=== PATIENT | male | born 1965 | race Caucasian/White ===

== ENCOUNTER 2020-06-16 12:09 | Inpatient (IN) | payer BC, OTHER ==
[~2020-06-16 12:09] MED LIST: Iopamidol-370 76% 500 ML 1 ML ONE
[2020-06-16] MEDS ORDERED: niCARdipine 20MG In NaCl 20 MG/200 ML BAG ONE (12:19)
--- NOTE | 2020-06-16 12:23 | CT ---
CT HEAD WITHOUT IV CONTRAST COMPARISON: None HISTORY: Level 1 stroke. Slurred speech and right-sided weakness. TECHNIQUE: Axial CT imaging at 5 mm intervals from vertex through skull base without contrast FINDINGS: Mild cerebellar volume loss is present. Minimal low-density area seen just inferior to the anterior h orn left lateral ventricle which is nonspecific but could be attributable to mild chronic small vessel ischemic changes. There is no evidence of an acute cortical infarction, hemorrhage, mass effec t, or midline shift. The ventricular system is normal in size, shape, and position. Skull base has a normal CT appearance. Mucous cyst is present in the right sphenoid sinus minimal mucosal thickening in the posterior left e thmoid cerebral and the left sphenoid sinus. Osseous structures appear intact, but there is slight mottled appearance of the clivus probably relat ed to osteopenia. IMPRESSION: 1. No acute intracranial abnormality demonstrated. 2. Above findings discussed with Dr. Otto in the emergency department on 06/16/2020 at 1219 ivan rs
[2020-06-16 12:25] LABS: #Basophils 0.1 thou/uL (0.0-0.2); #Eosinphils 0.2 thou/uL (0.0-0.7); #Lymphocytes 1.2 thou/uL (1.20-3.40); #Monocytes 0.6 thou/uL (0.11-0.59); #Neutrophils 2.8 thou/uL (1.40-6.50); %Basophils 1.1 % (0.0-1.0); %Eosinophils 4.3 % (0.0-10.0); %Lymphocytes 24.6 % (21.0-51.0); Hemoglobin 16.7 g/dL (14.0-18.0); Mean Corpuscular HGB CONC 33.3 g/dL (32.0-36.0); Mean Corpuscular Hemoglobin 31.6 pg (27.0-31.0); Mean Corpuscular Volume 94.9 fL (78.0-98.0); Mean Platelet Volume 10.9 fL (7.4-10.4); Platelet Count 166 thou/uL (130-400); RBC Distribution Width 12.3 % (11.5-14.5); Red Blood Cell (RBC) Count 5.29 mill/uL (4.70-6.10); White Blood Cell (WBC) Count 4.8 thou/uL (4.8-10.8)
[2020-06-16] MEDS ORDERED: Labetalol HCl 100 MG/20 ML VIAL ONE (12:26)
[2020-06-16 12:31] LABS: INR-International Normal Ratio 0.9; Prothrombin Time 12.8 sec (12.0-14.7)
[2020-06-16 12:32] LABS: PTT 28.2 sec (22.9-36.1)
[2020-06-16 13:27] LABS: Chloride 102 mmol/L (98-107); Potassium 4.4 mmol/L (3.5-5.1); Sodium 132 mmol/L (136-145)
[2020-06-16 13:28] LABS: Calcium 8.8 mg/dL (7.8-10.44)
[2020-06-16 13:29] LABS: Globulin 3.7 g/dL (2.4-3.5); Glucose 83 mg/dL (70-105); Protein, Total 7.7 g/dL (6.0-8.3)
[2020-06-16 13:30] LABS: Anion Gap 14 mmol/L (10-20); Carbon Dioxide 20 mmol/L (22-29)
[2020-06-16 13:31] LABS: Alkaline Phosphatase 76 U/L (40-110); Bilirubin, Total 0.5 mg/dL (0.2-1.2)
[2020-06-16 13:32] LABS: Calc. Creatinine Clearance 0 mL/min (70-130); Estimated GFR-MDRD 56
[2020-06-16 13:33] LABS: BUN (Urea Nitrogen) 18 mg/dL (8.4-25.7)
[2020-06-16 13:34] LABS: AST (SGOT) 55 U/L (5-34)
[2020-06-16 13:35] LABS: ALT (SGPT) 31 U/L (8-55); CK (CPK) 1462 U/L (30-200)
--- NOTE | 2020-06-16 14:53 | PDOC.HHP ---
Hospitalist HPI - History of Present Illness Slurred speech History of Present Illness: This is a 54-year-old male patient with a history of hypertension and hyperlipidemia who came in this morning on account of slurred speech and worsening right-sided weakness. Patient was driving when he pulled over at a stop and noticed was having slurred speech and weakness on his right side. He identified that has a stroke and called EMS. He was brought in here for further evaluation. He denied any associated fall, paresthesia or numbness. There was no associated chest pain or palpitations. He has no history of A. fib. He notes severe cramping in his right lower limbs. 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 Otherwise she has a history of hypertension for which she is on antihypertensives which she did not take. On presentation blood pressure was 155/104, pulse 70, respiratory rate 14, satting 100% on room air. On initial evaluation, CK was noted to be 1462, sodium 132, creatinine one 1.33, no baseline and records, hemoglobin was 16.7 and WBC 4.8. Platelet count 166. Head CT showed no acute intracranial process, CTA however noted mild atherosclerotic calcifications and plaques with mild narrowing involving each proximal internal carotid artery. Also had focal severe stenosis over the proximal left superior cerebellar, mild to moderate atherosclerotic narrowing involving most proximal posterior cerebral artery. He was given Cardene IV for blood pressure, as well as labetalol and TPA. He feels slight improvement since has been here. Hospitalist team was consulted for admission. Hospitalist ROS - Review of Systems Constitutional: denies: fever, chills, sweats Respiratory: denies: cough, shortness of breath, hemoptysis, SOB with excertion Cardiovascular: denies: chest pain, palpitations, orthopnea, paroxysmal noc. dyspnea Gastrointestinal: denies: nausea, vomiting, abdominal pain, diarrhea Genitourinary: denies: dysuria, frequency, incontinence Musculoskeletal: reports: leg pain Hospitalist History - Past Medical History Cardiac: reports: HTN - Family History Other Family History: None of significance - Social History Smoking Status: Former smoker Alcohol: reports: None Drugs: reports: none Activity level: independent ambulation - Exam General Appearance: awake alert General - other findings: Patient in bed, nasal tone to his voice, dysarthric ENT: normocephalic atraumatic, no oropharyngeal lesions Heart: RRR, no murmur, no gallops, no rubs Respiratory: no wheezes, no rales, no ronchi, no tachypnea Gastrointestinal: soft, non-tender, non-distended, normal bowel sounds Extremities: no cyanosis, no clubbing, no edema Neurological: cranial nerve grossly intact (Dysarthric), normal sensation to touch Neurological - other findings: 5/5 in upper and lower limbs Psychiatric: normal affect, A&O x 3 Hospitalist Results - Labs Result Diagrams: 06/16/20 12:15 06/16/20 13:09 Lab results: WBC 4.8 thou/uL (4.8-10.8) 06/16/20 12:15 Hgb 16.7 g/dL (14.0-18.0) 06/16/20 12:15 Hct 50.2 % (42.0-52.0) 06/16/20 12:15 MCV 94.9 fL (78.0-98.0) 06/16/20 12:15 Plt Count 166 thou/uL (130-400) 06/16/20 12:15 Neutrophils % 58.0 % (42.0-75.0) 06/16/20 12:15 Sodium 132 mmol/L (136-145) L 06/16/20 13:09 Potassium 4.4 mmol/L (3.5-5.1) 06/16/20 13:09 Chloride 102 mmol/L (98-107) 06/16/20 13:09 Carbon Dioxide 20 mmol/L (22-29) L 06/16/20 13:09 BUN 18 mg/dL (8.4-25.7) 06/16/20 13:09 Creatinine 1.33 mg/dL (0.7-1.3) H 06/16/20 13:09 Glucose 83 mg/dL (70-105) 06/16/20 13:09 Calcium 8.8 mg/dL (7.8-10.44) 06/16/20 13:09 Total Bilirubin 0.5 mg/dL (0.2-1.2) 06/16/20 13:09 AST 55 U/L (5-34) H 06/16/20 13:09 ALT 31 U/L (8-55) 06/16/20 13:09 Alkaline Phosphatase 76 U/L (40-110) 06/16/20 13:09 Creatine Kinase 1462 U/L (30-200) H 06/16/20 13:09 Troponin I Less than 0.010 ng/mL (< 0.028) 06/16/20 12:15 Serum Total Protein 7.7 g/dL (6.0-8.3) 06/16/20 13:09 Albumin 4.0 g/dL (3.5-5.0) 06/16/20 13:09 Hospitalist H&P A/P - Plan Plan: 54-year-old male patient history of hypertension, hyperlipidemia and sarcoma presenting with sudden onset dysarthria and right-sided weakness. This was concerning for stroke in a status post TPA. Stroke Dysarthria with right-sided weakness. No clear neurological deficits besides dysarthria at the time of my evaluation. TPA administeredtime 12:30 PM on 06/16/2020complete 12:30 PM We will admit to CCU for close monitoring. BP target below 180/105 Consult neurology BONITA/CKD Creatinine 1.33 at presentation We will monitor next Hyponatremia Sodium 132 Monitor BMP History of sarcoma, Uncontrolled hypertension Start blood pressure medications once TPA is over next VT prophylaxison TPA protocol now. CODE STATUSDNR DPOAsister
[2020-06-16] MEDS ORDERED: hydrALAZINE 20 MG/ML VIAL SLOW IVP PRN (15:56)
[2020-06-16] MEDS ORDERED: Communication Order-Pharmacy FS SCH (15:56)
[2020-06-16] MEDS ORDERED: Labetalol HCl 100 MG/20 ML VIAL SLOW IVP PRN (15:56)
[2020-06-16] MEDS ORDERED: niCARdipine 25 MG in Sodium Chloride 0.9% 250 ML 240 ML IVPB PRN (15:56)
[2020-06-16 17:56] VITALS: BMI 24.3
--- NOTE | 2020-06-17 10:19 | PDOC.HOSPP ---
- Subjective Encounter Date: 06/17/20 Encounter Time: 10:18 Subjective: Mr. Robbins was seen today in follow-up of acute CVA with right sided weakness, and dysarthria. He has not noticed much improvement after the TPA. - Objective Vital Signs & Weight: Vital Signs (12 hours) Temp 06/17/20 04:00 97.7 F 06/17/20 00:00 97.5 F L Weight Weight 174 lb 13.225 oz Most Recent Monitor Data Heart Rate from ECG 89 NIBP 166/106 NIBP BP-Mean 126 Respiration from ECG 12 SpO2 100 I&O: 06/16/20 06/17/20 06/18/20 06:59 06:59 06:59 Intake Total 330 Output Total 950 Balance -620 Result Diagrams: 06/16/20 12:15 06/16/20 13:09 Additional Labs: Accuchecks 06/16/20 12:12 POC Glucose 87 Hospitalist ROS - Medication Medications: Active Medications Generic Name Dose Route Start Last Admin Trade Name Freq PRN Reason Stop Dose Admin Miscellaneous Information 1 each 06/16/20 15:56 06/16/20 17:40 Communication Order-Pharmacy FS 06/17/20 12:30 Not Given NOW ANTHONY - Exam Eye: PERRL, anicteric sclera Heart: RRR, no murmur, no gallops, no rubs, normal peripheral pulses Respiratory: CTAB, no wheezes, no rales, no ronchi, normal chest expansion Gastrointestinal: soft, non-distended Extremities: no cyanosis, no edema Neurological: speech deficit (+ weakness in the right upper extremity, and mild weakness in the right lower extremity) Hosp A/P (1) Acute CVA (cerebrovascular accident) Code(s): I63.9 - CEREBRAL INFARCTION, UNSPECIFIED Status: Acute (2) Right hemiplegia Code(s): G81.91 - HEMIPLEGIA, UNSPECIFIED AFFECTING RIGHT DOMINANT SIDE Status: Acute (3) Hypertension Code(s): I10 - ESSENTIAL (PRIMARY) HYPERTENSION Status: Chronic (4) Dysarthria Code(s): R47.1 - DYSARTHRIA AND ANARTHRIA Status: Acute (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
--- NOTE | 2020-06-17 10:19 | CT ---
Exam: Head CT without contrast HISTORY: CVA. Level 1 stroke. COMPARISON: 06/16/2020 FINDINGS: Hemorrhage: No intraparenchymal hemorrhage or extra-axial hematoma. Brain parenchyma: Cortical huynh-white matter differentiation is preserved. No mass effect or midline shift. Basilar cisterns are patent. Ventricular system: Ventricles and sulci are patent and symmetric. Calvarium: Intact. Sinuses and mastoid air cells: Adequate aeration. IMPRESSION: 1. No acute intracranial process 2. No significant interval change.
[2020-06-17] MEDS ORDERED: Amlodipine 5 MG TAB PO SCH (12:00)
--- NOTE | 2020-06-17 12:52 | CON ---
NEUROLOGY CONSULTATION DATE OF CONSULTATION: 06/17/2020 REASON FOR CONSULTATION: Slurred speech, status post tPA. HISTORY OF PRESENT ILLNESS: Mr. Chaparro is a 54-year-old male with history significant for hypertension, hyperlipidemia, presented with slurred speech and worsening right-sided weakness. Per the patient, he was driving and was pulled over at a stop because he noticed he had slurred speech and was weak on the right side. He was concerned about stroke, so called EMS, and he was brought in for further evaluation. The patient denies any nausea, vomiting, headache, chest pain, abdominal pain, recent illness or recent exposure to COVID problems with swallowing, headache, loss of vision, blurred vision, or loss of consciousness. He does have history of sarcoma in the sphenoidal sinus and was treated with chemotherapy and radiation a decade ago. In the emergency room, his blood pressure was 155/104, pulse 70, respiratory rate 15, and CT scan was done, which was negative for acute intracranial pathology. CTA did not reveal hemodynamically significant stenosis. He was given Cardene IV for blood pressure and labetalol and also tPA with slight improvement in his system. He was admitted for further evaluation. REVIEW OF SYSTEMS: All systems were reviewed and were negative except the pertinent positives and negatives mentioned in the HPI. PAST MEDICAL HISTORY: Hypertension and hyperlipidemia. PAST SURGICAL HISTORY: None. FAMILY HISTORY: No significant family history. SOCIAL HISTORY: Independent. Denies smoking. Denies alcohol, illegal drug use. He is a former smoker. ALLERGIES; NSAIDS Vital Signs & Weight: Vital Signs (12 hours) Temp 06/17/20 04:00 97.7 F 06/17/20 00:00 97.5 F L Weight Weight 174 lb 13.225 oz Most Recent Monitor Data Heart Rate from ECG 89 NIBP 166/106 NIBP BP-Mean 126 Respiration from ECG 12 SpO2 100 I&O: 06/16/20 06/17/20 06/18/20 06:59 06:59 06:59 Intake Total 330 Output Total 950 Balance -620 Additional Labs: Accuchecks 06/16/20 12:12 POC Glucose 87 Active Medications Generic Name Dose Route Start Last Admin Trade Name Freq PRN Reason Stop Dose Admin Miscellaneous Information 1 each 06/16/20 15:56 06/16/20 17:40 Communication Order-Pharmacy FS 06/17/20 12:30 Not Given NOW ANTHONY PHYSICAL EXAMINATION: General Appearance: awake alert General - other findings: Patient in bed, nasal tone to his voice, dysarthric ENT: normocephalic atraumatic, no oropharyngeal lesions Heart: RRR, no murmur, no gallops, no rubs Respiratory: no wheezes, no rales, no ronchi, no tachypnea Gastrointestinal: soft, non-tender, non-distended, normal bowel sounds Extremities: no cyanosis, no clubbing, no edema Neurological: the patient is alert and oriented to person, place, and time. Speech is dysarthria. Recent and remote memory intact. Cranial nerves 2 through 12 intact except 10, dysarthria. Motor, muscle tone and bulk are normal. Mild right hemiparesis. Sensory intact. Cerebellar, finger-nose testing intact. Gait deferred due to patient's safety reason. DATA REVIEWED: I reviewed the labs which were significant for mild hyponatremia 132 and creatinine 1.33. Lab results: WBC 4.8 thou/uL (4.8-10.8) 06/16/20 12:15 Hgb 16.7 g/dL (14.0-18.0) 06/16/20 12:15 Hct 50.2 % (42.0-52.0) 06/16/20 12:15 MCV 94.9 fL (78.0-98.0) 06/16/20 12:15 Plt Count 166 thou/uL (130-400) 06/16/20 12:15 Neutrophils % 58.0 % (42.0-75.0) 06/16/20 12:15 Sodium 132 mmol/L (136-145) L 06/16/20 13:09 Potassium 4.4 mmol/L (3.5-5.1) 06/16/20 13:09 Chloride 102 mmol/L (98-107) 06/16/20 13:09 Carbon Dioxide 20 mmol/L (22-29) L 06/16/20 13:09 BUN 18 mg/dL (8.4-25.7) 06/16/20 13:09 Creatinine 1.33 mg/dL (0.7-1.3) H 06/16/20 13:09 Glucose 83 mg/dL (70-105) 06/16/20 13:09 Calcium 8.8 mg/dL (7.8-10.44) 06/16/20 13:09 Total Bilirubin 0.5 mg/dL (0.2-1.2) 06/16/20 13:09 AST 55 U/L (5-34) H 06/16/20 13:09 ALT 31 U/L (8-55) 06/16/20 13:09 Alkaline Phosphatase 76 U/L (40-110) 06/16/20 13:09 Creatine Kinase 1462 U/L (30-200) H 06/16/20 13:09 Troponin I Less than 0.010 ng/mL (< 0.028) 06/16/20 12:15 Serum Total Protein 7.7 g/dL (6.0-8.3) 06/16/20 13:09 Albumin 4.0 g/dL (3.5-5.0) 06/16/20 13:09 ASSESSMENT AND PLAN: (1) Acute CVA (cerebrovascular accident) Code(s): I63.9 - CEREBRAL INFARCTION, UNSPECIFIED Status: Acute (2) Right hemiplegia Code(s): G81.91 - HEMIPLEGIA, UNSPECIFIED AFFECTING RIGHT DOMINANT SIDE Status: Acute (3) Hypertension Code(s): I10 - ESSENTIAL (PRIMARY) HYPERTENSION Status: Chronic (4) Dysarthria Code(s): R47.1 - DYSARTHRIA AND ANARTHRIA Status: Acute (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 Chaparro is a 54-year-old male with history significant for hypertension, hyperlipidemia, and prior history of sarcoma, presented with acute onset dysarthria and right-sided weakness. He is status post tPA. Not much improvement in mild right hemiparesis and dysarthria .tPA was administered at 12:30 p.m. on 06/16/2020 and completed. Permissive controlof blood pressure at this time. Strict control of blood glucose. Frequent neuro checks. No antiplatelets or anticoagulants at this time 24 hours post tPA. Repeat head CT reviewed, which was negative for acute stroke or bleed. Consider starting aspirin 24 hours post tpa. Repeat HCT negative for bleed. N.p.o. until cleared by speech. Telemetry and 2 D Echo. Start home medications. Start statin for secondary stroke prevention. Continue medical management per primary team. PT/OT/Speech. DVT prophylaxis. We will continue to follow. Thank you for the consult. Job ID: [id number] MTDD
--- NOTE | 2020-06-17 13:40 | CT ---
EXAM: CT angiogram head and neck with IV contrast and 3-D reconstructions PROVIDED CLINICAL HISTORY: Slurred speech and right-sided weakness. COMPARISON: None FINDINGS: Minimal atherosclerotic plaque is seen at the aortic arch. There is a normal arrangement of the great vessels at the aortic arch which are patent. The innominate artery and right subclavian artery patent. Portion of the left subclavian artery is obscured due to dense contrast within the adjacent s ubclavian vein. Bilateral common carotid arteries are patent. There is mild atherosclerotic calcification and plaque involving the origins and proximal bilateral i nternal carotid arteries without significant narrowing involving either internal carotid artery. The bilateral vertebral arteries are codominant and patent. The basilar artery is patent There is a focal severe stenosis involving the proximal left superior cerebellar artery. The right gonsalez perior cerebellar artery is patent. Mild to moderate atherosclerotic irregularity and narrowing is seen involving the most proximal right posterior cerebral artery. Left posterior cerebral artery is p atent Dense vascular calcifications are seen in the carotid siphons with at least mild degrees of narrowing present. The bilateral anterior cerebral and middle cerebral arteries are patent without focal stenosis or branch occlusion. As noted on noncontrast CT head, there is a small low-density area seen just superior to the anterior horn left lateral ventricle in the region of the left frontal forceps region likely attributable to chronic small vessel ischemic changes. There is heterogeneity involving the clivus likely related to osteopenia. Small amount of fluid is seen in the posterior nasopharynx likely secondary to secretions. Mild mucos al thickening is seen in the left maxillary antrum as well as left posterior ethmoidal air cells and right sphenoid sinus with tiny mucous retention cysts in the right maxillary antrum. Mastoid air cells are clear. Mild degenerative change seen in the spine. IMPRESSION: 1. Mild atherosclerotic calcifications and plaque with mild narrowing involving each proximal interna l carotid artery, but the degree of narrowing is less than 50%. 2. Patent bilateral vertebral arteries. 3. Focal severe stenosis involving the proximal left superior cerebellar artery. 4. [id number] atherosclerotic irregularity and narrowing involving the most proximal right post erior cerebral artery. 5 Patent bilateral anterior cerebral and middle cerebral arteries. 6. Above findings discussed with Dr. Otto in the emergency department on 06/16/2020 at 1301 ivan rs. Transcribed Date/Time: 06/17/2020 1:40 PM
[2020-06-17] MEDS ORDERED: FLU VACC QS2020-21(6MOS UP)/PF 60 MCG/0.5 ML SYRINGE IM ONE (21:00)
[2020-06-17] MEDS: hydrALAZINE 25 MG TAB PO SCH (22:05)
[2020-06-18 05:33] LABS: Cardiac Risk 6.5 (Less than 4.5)
[2020-06-18] MEDS: hydrALAZINE 25 MG TAB PO SCH ×3 (08:41→20:20)
[2020-06-18] MEDS: Clopidogrel Bisulfate 75 MG TAB PO SCH (08:45)
[2020-06-18] MEDS ORDERED: Amlodipine 5 MG TAB PO SCH (09:00)
--- NOTE | 2020-06-18 10:26 | PDOC.HOSPP ---
- Subjective Encounter Date: 06/18/20 Encounter Time: 10:25 Subjective: Rosendo was seen today in follow-up of acute CVA. He does not have any new complaints. He notes continued weakness in his right upper and lower extremity. - Objective Vital Signs & Weight: Vital Signs (12 hours) Temp Pulse Resp BP BP Pulse Ox 06/18/20 08:41 70 152/82 H 06/18/20 07:50 97.6 F 70 20 152/82 H 96 06/18/20 04:00 98.3 F 70 18 158/94 H 96 06/18/20 00:00 98.0 F 73 18 151/101 H 96 Weight Admit Weight 174 lb Weight 174 lb 13.225 oz Most Recent Monitor Data Heart Rate from ECG 72 NIBP 126/90 NIBP BP-Mean 102 Respiration from ECG 16 SpO2 100 I&O: 06/17/20 06/18/20 06/19/20 06:59 06:59 06:59 Intake Total 330 900 Output Total 950 700 Balance -620 200 Result Diagrams: 06/16/20 12:15 06/16/20 13:09 Hospitalist ROS - Medication Medications: Active Medications Generic Name Dose Route Start Last Admin Trade Name Freq PRN Reason Stop Dose Admin Clopidogrel Bisulfate 75 mg 06/18/20 09:00 06/18/20 08:45 Clopidogrel Bisulfate 75 Mg Tab PO 75 mg DAILY ANTHONY Administration Hydralazine HCl 25 mg 06/17/20 21:00 06/18/20 08:41 Hydralazine 25 Mg Tab PO 25 mg TID ANTHONY Administration - Exam Eye: PERRL, anicteric sclera Heart: RRR, no murmur, no gallops, no rubs, normal peripheral pulses Respiratory: CTAB, no wheezes, no rales, no ronchi, normal chest expansion, no tachypnea, normal percussion Gastrointestinal: soft, non-tender, non-distended, normal bowel sounds, no palpable masses, no hepatomegaly, no splenomegaly Extremities: no cyanosis, no edema Hosp A/P (1) Acute CVA (cerebrovascular accident) Code(s): I63.9 - CEREBRAL INFARCTION, UNSPECIFIED Status: Acute (2) Right hemiplegia Code(s): G81.91 - HEMIPLEGIA, UNSPECIFIED AFFECTING RIGHT DOMINANT SIDE Status: Acute (3) Hypertension Code(s): I10 - ESSENTIAL (PRIMARY) HYPERTENSION Status: Chronic (4) Dysarthria Code(s): R47.1 - DYSARTHRIA AND ANARTHRIA Status: Acute (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 Will use Plavix instead * He also says he had a bad reaction to Statin's in the past. Ordered Lipitor, but he says he can not take it. * HTN- blood pressure is elevated-will add a low dose Losartan, and titrate as tolerated * Continue PT/OT and Speech Therapy * Will screen for Inpatient Rehab
[2020-06-18 10:35] LABS: SARS-CoV-2 MS2 Positive; SARS-CoV-2 N Gene Negative; SARS-CoV-2 S Gene Negative; SARS-CoV-2 by NAA Not Detected (NotDetected); SARS-CoV-2 orf1ab Negative
--- NOTE | 2020-06-18 11:30 | CT ---
CT HEAD WITHOUT IV CONTRAST COMPARISON: 06/17/2020 HISTORY: CVA, post TPA administration. TECHNIQUE: Axial CT imaging at 5 mm intervals from vertex through skull base without contrast FINDINGS: There is mild cerebellar volume loss. There is no evidence of an acute infarction, hemorrhage, mass e ffect, or midline shift. The ventricular system is normal in size, shape, and position. Skull base has a normal CT appearance. Gross thickening is again seen in the right sphenoid sinus. CT head is stable compared to prior exam. IMPRESSION: 1. No acute intracranial abnormality demonstrated.
--- NOTE | 2020-06-18 12:41 | PDOC.NEUPN ---
- Subjective Encounter Date: 06/18/20 Subjective: Patient continues to have focal neurological deficits including speech deficit and right hemiparesis. - Objective Vital Signs & Weight: Vital Signs (12 hours) Temp Pulse Resp BP BP Pulse Ox 06/18/20 08:41 70 152/82 H 06/18/20 07:50 97.6 F 70 20 152/82 H 96 06/18/20 04:00 98.3 F 70 18 158/94 H 96 Weight Admit Weight 174 lb Weight 174 lb 13.232 oz Most Recent Monitor Data Heart Rate from ECG 72 NIBP 126/90 NIBP BP-Mean 102 Respiration from ECG 16 SpO2 100 I&O: 06/17/20 06/18/20 06/19/20 06:59 06:59 06:59 Intake Total 330 900 Output Total 950 700 Balance -620 200 Result Diagrams: 06/16/20 12:15 06/16/20 13:09 Radiology Reviewed by me: Yes EKG Reviewed by me: Yes ROS - Review of Systems Constitutional: denies: fever, chills, sweats, weakness, malaise, other Eyes: denies: pain, vision change, conjunctivae inflammation, eyelid inflammation, redness, other ENT: denies: ear pain, ear discharge, nose pain, nose discharge, nose congestion, mouth pain, mouth swelling, throat pain, throat swelling, other Respiratory: denies: cough, dry, shortness of breath, hemoptysis, SOB with excertion, pleuritic pain, sputum, wheezing, other Gastrointestinal: denies: nausea, vomiting, abdominal pain, diarrhea, c onstipation, melena, hematochezia, other Genitourinary: denies: dysuria, frequency, incontinence, hematuria, retention, other Musculoskeletal: denies: neck pain, shoulder pain, arm pain, back pain, hand pain, leg pain, foot pain, other Skin: denies: rash, lesions, kwaku, bruising, other Neurological: reports: weakness, change in speech. denies: numbness, incoordination, confusion, seizures, other - Medication Medications: Active Medications Generic Name Dose Route Start Last Admin Trade Name Freq PRN Reason Stop Dose Admin Clopidogrel Bisulfate 75 mg 06/18/20 09:00 06/18/20 08:45 Clopidogrel Bisulfate 75 Mg Tab PO 75 mg DAILY ANTHONY Administration Hydralazine HCl 25 mg 06/17/20 21:00 06/18/20 08:41 Hydralazine 25 Mg Tab PO 25 mg TID ANTHONY Administration - Exam General Appearance: awake alert Eye: PERRL ENT: normocephalic atraumatic Neck: supple Respiratory: CTAB Cardiovascular: RRR Gastrointestinal: soft Extremities: no cyanosis Skin: normal turgor Neurological: no new deficit Musculoskeletal: no muscle wasting PSYCH: normal affect, normal behavior, A&O x 3 Results - Labs Result Diagrams: 06/16/20 12:15 06/16/20 13:09 Lab results: WBC 4.8 thou/uL (4.8-10.8) 06/16/20 12:15 Hgb 16.7 g/dL (14.0-18.0) 06/16/20 12:15 Hct 50.2 % (42.0-52.0) 06/16/20 12:15 MCV 94.9 fL (78.0-98.0) 06/16/20 12:15 Plt Count 166 thou/uL (130-400) 06/16/20 12:15 Neutrophils % 58.0 % (42.0-75.0) 06/16/20 12:15 Sodium 132 mmol/L (136-145) L 06/16/20 13:09 Potassium 4.4 mmol/L (3.5-5.1) 06/16/20 13:09 Chloride 102 mmol/L (98-107) 06/16/20 13:09 Carbon Dioxide 20 mmol/L (22-29) L 06/16/20 13:09 BUN 18 mg/dL (8.4-25.7) 06/16/20 13:09 Creatinine 1.33 mg/dL (0.7-1.3) H 06/16/20 13:09 Glucose 83 mg/dL (70-105) 06/16/20 13:09 Calcium 8.8 mg/dL (7.8-10.44) 06/16/20 13:09 Total Bilirubin 0.5 mg/dL (0.2-1.2) 06/16/20 13:09 AST 55 U/L (5-34) H 06/16/20 13:09 ALT 31 U/L (8-55) 06/16/20 13:09 Alkaline Phosphatase 76 U/L (40-110) 06/16/20 13:09 Creatine Kinase 1462 U/L (30-200) H 06/16/20 13:09 Troponin I Less than 0.010 ng/mL (< 0.028) 06/16/20 12:15 Serum Total Protein 7.7 g/dL (6.0-8.3) 06/16/20 13:09 Albumin 4.0 g/dL (3.5-5.0) 06/16/20 13:09 - EKG Interpretation EKG: Normal sinus rhythm - Radiology Interpretation MRI - head Status: pending CT scan - head Status: image reviewed by me, report reviewed by me Additional Comment: Head CT reviewed which was negative for acute intracranial pathology. 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 Anand Elizabeth is a 54-year-old male with history significant for sarcoma, hypertension presented with acute onset speech deficit with right hemiparesis. He is s/p TPA and reports possible persistent symptoms. Head CT reviewed which was negative for acute intracranial pathology. CTA of the head and neck reviewed and results noted. 2D echo pending. Continue telemetry to rule out arrhythmias. Neurochecks every 4 hours. Strict control of blood pressure and blood glucose. Continue Plavix for secondary stroke prevention. Patient is allergic to aspirin. Continue high intensity statin for secondary stroke prevention. Continue home medications. PT/OT/speech DVT prophylaxis Rehab screen. Continue medical management per primary team. Plan discussed in detail with the patient, patient's stepmother and during MDR rounds.
--- NOTE | 2020-06-18 16:09 | MRI ---
MRI brain noncontrast HISTORY: CVA. FINDINGS: Centered within the left side of the steph is an irregular shaped focus of restricted diffus ion with corresponding defect on ADC mapping images. It is 1.3 cm x 0.9 cm diameters on the axial images. Very mild FLAIR and T2 abnormality at this location. No other areas of acute hemorrhage or infarct. Very mild scattered chronic ischemic small vessel dise ase. Mild mucosal thickening left maxillary sinus. IMPRESSION : Acute infarct left steph..
[2020-06-18] MEDS: Atorvastatin Calcium 40 MG TAB PO SCH (20:20)
[2020-06-19] MEDS ORDERED: Losartan 25 MG TAB PO SCH ×4 (09:00→11:00)
--- NOTE | 2020-06-19 10:50 | PDOC.HOSPP ---
- Subjective Encounter Date: 06/19/20 Encounter Time: 10:48 Subjective: Mr. Robbins was seen today in follow-up of acute CVA. He does not have any complaints. He notes improved strength in his right leg, but the right upper extremity seems weaker. - Objective Vital Signs & Weight: Vital Signs (12 hours) Temp Pulse Resp BP Pulse Ox 06/19/20 09:28 97.9 F 72 14 139/96 H 98 06/19/20 07:46 97 06/19/20 04:00 98.3 F 81 13 175/105 H 97 06/19/20 00:00 80 162/92 H Weight Admit Weight 174 lb Weight 174 lb 13.232 oz Most Recent Monitor Data Heart Rate from ECG 72 NIBP 126/90 NIBP BP-Mean 102 Respiration from ECG 16 SpO2 100 I&O: 06/18/20 06/19/20 06/20/20 06:59 06:59 06:59 Intake Total 900 Output Total 700 650 Balance 200 -650 Result Diagrams: 06/16/20 12:15 06/16/20 13:09 Hospitalist ROS - Medication Medications: Active Medications Generic Name Dose Route Start Last Admin Trade Name Freq PRN Reason Stop Dose Admin Atorvastatin Calcium 40 mg 06/18/20 21:00 06/18/20 20:20 Atorvastatin Calcium 40 Mg Tab PO Not Given HS ANTHONY Clopidogrel Bisulfate 75 mg 06/18/20 09:00 06/18/20 08:45 Clopidogrel Bisulfate 75 Mg Tab PO 75 mg DAILY ANTHONY Administration Hydralazine HCl 25 mg 06/17/20 21:00 06/18/20 20:20 Hydralazine 25 Mg Tab PO 25 mg TID ANTHONY Administration - Exam Eye: PERRL, anicteric sclera Heart: RRR, no gallops, no rubs, normal peripheral pulses, murmur present, II/IV Respiratory: CTAB, no wheezes, no rales, no ronchi, normal chest expansion, no tachypnea Gastrointestinal: soft, non-tender, non-distended, normal bowel sounds, no palpable masses, no hepatomegaly Extremities: no cyanosis, no edema Neurological: hemiplegia (right hemiplegia, his right upper extremity, he is unable to life against gravity, and he is able to lift his right leg against mild resistance.) Hosp A/P (1) Acute CVA (cerebrovascular accident) Code(s): I63.9 - CEREBRAL INFARCTION, UNSPECIFIED Status: Acute (2) Right hemiplegia Code(s): G81.91 - HEMIPLEGIA, UNSPECIFIED AFFECTING RIGHT DOMINANT SIDE Status: Acute (3) Hypertension Code(s): I10 - ESSENTIAL (PRIMARY) HYPERTENSION Status: Chronic (4) Dysarthria Code(s): R47.1 - DYSARTHRIA AND ANARTHRIA Status: Acute (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
[2020-06-19] MEDS: hydrALAZINE 25 MG TAB PO SCH ×3 (11:04→20:42)
[2020-06-19] MEDS: Clopidogrel Bisulfate 75 MG TAB PO SCH (11:04)
[2020-06-19 11:11] LABS: #Eosinphils 0.2 thou/uL (0.0-0.7); #Monocytes 0.6 thou/uL (0.11-0.59); %Basophils 0.7 % (0.0-1.0); %Eosinophils 3.4 % (0.0-10.0); %Lymphocytes 21.7 % (21.0-51.0); %Neutrophils 62.3 % (42.0-75.0); Hemoglobin 16.5 g/dL (14.0-18.0); Mean Corpuscular Volume 94.3 fL (78.0-98.0); Mean Platelet Volume 9.1 fL (7.4-10.4); Platelet Count 157 thou/uL (130-400); RBC Distribution Width 12.5 % (11.5-14.5); Red Blood Cell (RBC) Count 5.14 mill/uL (4.70-6.10); White Blood Cell (WBC) Count 4.8 thou/uL (4.8-10.8)
[2020-06-19 11:29] LABS: Anion Gap 10 mmol/L (10-20); BUN (Urea Nitrogen) 20 mg/dL (8.4-25.7); Calc. Creatinine Clearance 74 mL/min (70-130); Calcium 9.3 mg/dL (7.8-10.44); Carbon Dioxide 25 mmol/L (22-29); Estimated GFR-MDRD 58; Glucose 113 mg/dL (70-105); Sodium 136 mmol/L (136-145)
[2020-06-19 12:11] LABS: Chloride 105 mmol/L (98-107)
--- NOTE | 2020-06-19 13:47 | PDOC.NEUPN ---
- Subjective Encounter Date: 06/19/20 Subjective: Mr. Acevedo feels much better today. His strength in the lower extremity improved but still continues to have persistent weakness in the right upper extremity and speech deficits. MRI of the brain is consistent with acute infarction in the left steph. - Objective Vital Signs & Weight: Vital Signs (12 hours) Temp Pulse Pulse Pulse Resp BP BP 06/19/20 12:00 98.1 F 66 18 06/19/20 11:04 72 139/96 H 06/19/20 10:10 73 75 157/97 H 06/19/20 09:28 97.9 F 72 14 06/19/20 07:46 06/19/20 04:00 98.3 F 81 13 BP BP Pulse Ox 06/19/20 12:00 160/91 H 96 06/19/20 11:04 06/19/20 10:10 140/95 H 06/19/20 09:28 139/96 H 98 06/19/20 07:46 97 06/19/20 04:00 175/105 H 97 Weight Admit Weight 174 lb Weight 174 lb 13.232 oz Most Recent Monitor Data Heart Rate from ECG 72 NIBP 126/90 NIBP BP-Mean 102 Respiration from ECG 16 SpO2 100 I&O: 06/18/20 06/19/20 06/20/20 06:59 06:59 06:59 Intake Total 900 Output Total 700 650 Balance 200 -650 Result Diagrams: 06/19/20 10:38 06/19/20 10:38 Radiology Reviewed by me: Yes EKG Reviewed by me: Yes ROS - Review of Systems Constitutional: denies: fever, chills, sweats, weakness, malaise, other Eyes: denies: pain, vision change, conjunctivae inflammation, eyelid inflammation, redness, other ENT: denies: ear pain, ear discharge, nose pain, nose discharge, nose congestion, mouth pain, mouth swelling, throat pain, throat swelling, other Respiratory: denies: cough, dry, shortness of breath, hemoptysis, SOB with excertion, pleuritic pain, sputum, wheezing, other Musculoskeletal: denies: neck pain, shoulder pain, arm pain, back pain, hand pain, leg pain, foot pain, other Neurological: reports: weakness, numbness, incoordination, change in speech. denies: confusion, seizures, other All Systems: All other systems reviewed; all pertinent +/- noted in HPI/Subj - Medication Medications: Active Medications Generic Name Dose Route Start Last Admin Trade Name Brittney PRN Reason Stop Dose Admin Atorvastatin Calcium 40 mg 06/18/20 21:00 06/18/20 20:20 Atorvastatin Calcium 40 Mg Tab PO Not Given HS ANTHONY Clopidogrel Bisulfate 75 mg 06/18/20 09:00 06/19/20 11:04 Clopidogrel Bisulfate 75 Mg Tab PO 75 mg DAILY ANTHONY Administration Hydralazine HCl 25 mg 06/17/20 21:00 06/19/20 11:04 Hydralazine 25 Mg Tab PO 25 mg TID ANTHONY Administration Losartan Potassium 100 mg 06/19/20 11:00 06/19/20 11:07 Losartan 25 Mg Tab PO 06/19/20 14:00 100 mg NOW ANTHONY Administration - Exam General Appearance: awake alert Eye: PERRL ENT: normocephalic atraumatic Neck: supple Respiratory: CTAB Cardiovascular: RRR Gastrointestinal: soft, non-tender Extremities: no cyanosis Skin: normal turgor Neurological: no new deficit, facial droop, hemiplegia, speech deficit Musculoskeletal: no muscle wasting PSYCH: normal affect, A&O x 3 Results - Labs Result Diagrams: 06/19/20 10:38 06/19/20 10:38 Lab results: WBC 4.8 thou/uL (4.8-10.8) 06/19/20 10:38 Hgb 16.5 g/dL (14.0-18.0) 06/19/20 10:38 Hct 48.4 % (42.0-52.0) 06/19/20 10:38 MCV 94.3 fL (78.0-98.0) 06/19/20 10:38 Plt Count 157 thou/uL (130-400) 06/19/20 10:38 Neutrophils % 62.3 % (42.0-75.0) 06/19/20 10:38 Sodium 136 mmol/L (136-145) 06/19/20 10:38 Potassium 4.0 mmol/L (3.5-5.1) 06/19/20 10:38 Chloride 105 mmol/L (98-107) 06/19/20 10:38 Carbon Dioxide 25 mmol/L (22-29) 06/19/20 10:38 BUN 20 mg/dL (8.4-25.7) 06/19/20 10:38 Creatinine 1.30 mg/dL (0.7-1.3) 06/19/20 10:38 Glucose 113 mg/dL (70-105) H 06/19/20 10:38 Calcium 9.3 mg/dL (7.8-10.44) 06/19/20 10:38 Total Bilirubin 0.5 mg/dL (0.2-1.2) 06/16/20 13:09 AST 55 U/L (5-34) H 06/16/20 13:09 ALT 31 U/L (8-55) 06/16/20 13:09 Alkaline Phosphatase 76 U/L (40-110) 06/16/20 13:09 Creatine Kinase 1462 U/L (30-200) H 06/16/20 13:09 Troponin I Less than 0.010 ng/mL (< 0.028) 06/16/20 12:15 Serum Total Protein 7.7 g/dL (6.0-8.3) 06/16/20 13:09 Albumin 4.0 g/dL (3.5-5.0) 06/16/20 13:09 - EKG Interpretation EKG: Normal sinus rhythm - Radiology Interpretation MRI - head Status: image reviewed by me, report reviewed by me Additional Comment: MRI of the right brain consistent with acute infarction in the left steph PN A/P (1) Acute CVA (cerebrovascular accident) Code(s): I63.9 - CEREBRAL INFARCTION, UNSPECIFIED Status: Acute (2) Dysarthria Code(s): R47.1 - DYSARTHRIA AND ANARTHRIA Status: Acute (3) Right hemiplegia Code(s): G81.91 - HEMIPLEGIA, UNSPECIFIED AFFECTING RIGHT DOMINANT SIDE Statu s: Acute (4) Hypertension Code(s): I10 - ESSENTIAL (PRIMARY) HYPERTENSION Status: Chronic (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 Anand Elizabeth is a 54-year-old male with history significant for sarcoma, hypertension presented with acute onset speech deficit with right hemiparesis. He is s/p TPA and there is some improvement in the neurological symptoms. His strength is improving the right lower extremity. MRI of the brain consistent with acute infarction MRI of the brain reviewed which was consistent with acute infarction in the left steph Head CT reviewed which was negative for acute intracranial pathology. CTA of the head and neck reviewed and results noted. 2D echo showed left ventricular ejection fraction 55 to 60%. No thrombus or PFO Continue telemetry to rule out arrhythmias. Neurochecks every 4 hours. Strict control of blood pressure and blood glucose. Continue Plavix for secondary stroke prevention. Patient is allergic to aspirin. Continue high intensity statin for secondary stroke prevention. Continue home medications. PT/OT/speech DVT prophylaxis Rehab screen. Continue medical management per primary team. Plan discussed in detail with the patient, patient's and the nursing staff.
[2020-06-19] MEDS: Atorvastatin Calcium 40 MG TAB PO SCH (20:42)
--- NOTE | 2020-06-20 07:32 | PDOC.HOSPP ---
- Subjective Encounter Date: 06/20/20 Encounter Time: 08:00 Subjective: Mr. Robbins is a 54 year old male being followed for CVA with right hemiplegia and speech deficit. Patient stated he slept well last night and had no new complaints. - Objective Vital Signs & Weight: Vital Signs (12 hours) Temp Pulse Resp BP BP Pulse Ox 06/20/20 04:21 98.1 F 76 14 147/95 H 96 06/20/20 01:47 96 06/19/20 23:57 97.9 F 65 18 134/72 96 06/19/20 20:42 70 06/19/20 20:35 98.2 F 70 14 161/97 H 96 Weight Admit Weight 174 lb Weight 174 lb 13.232 oz Most Recent Monitor Data Heart Rate from ECG 72 NIBP 126/90 NIBP BP-Mean 102 Respiration from ECG 16 SpO2 100 I&O: 06/19/20 06/20/20 06/21/20 06:59 06:59 06:59 Intake Total 720 Output Total 650 1300 Balance -650 -580 Result Diagrams: 06/19/20 10:38 06/19/20 10:38 Hospitalist ROS - Review of Systems Constitutional: denies: fever, chills Respiratory: denies: cough, shortness of breath Cardiovascular: denies: chest pain, palpitations Gastrointestinal: denies: nausea, vomiting, diarrhea Neurological: reports: weakness (right sided) - Medication Medications: Active Medications Generic Name Dose Route Start Last Admin Trade Name Freq PRN Reason Stop Dose Admin Clopidogrel Bisulfate 75 mg 06/18/20 09:00 06/19/20 11:04 Clopidogrel Bisulfate 75 Mg Tab PO 75 mg DAILY ANTHONY Administration Hydralazine HCl 25 mg 06/17/20 21:00 06/19/20 20:42 Hydralazine 25 Mg Tab PO 25 mg TID ANTHONY Administration Sodium Chloride 10 ml 06/19/20 21:00 06/19/20 20:42 Flush - Normal Saline 10 Ml Syringe IVF 10 ml Q12HR ANTHONY Administration - Exam General Appearance: NAD, awake alert Heart: RRR, no murmur, no gallops, no rubs Respiratory: CTAB, no wheezes, no rales, no ronchi Gastrointestinal: soft, non-tender, non-distended, normal bowel sounds Extremities: no cyanosis Neurological: hemiplegia (right sided), speech deficit Psychiatric: normal affect, normal behavior, A&O x 3 Hosp A/P (1) Acute CVA (cerebrovascular accident) Code(s): I63.9 - CEREBRAL INFARCTION, UNSPECIFIED Status: Acute (2) Right hemiplegia Code(s): G81.91 - HEMIPLEGIA, UNSPECIFIED AFFECTING RIGHT DOMINANT SIDE Status: Acute (3) Hypertension Code(s): I10 - ESSENTIAL (PRIMARY) HYPERTENSION Status: Chronic (4) Dysarthria Code(s): R47.1 - DYSARTHRIA AND ANARTHRIA Status: Acute (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 Mr. Robbins continues to have significant weakness in both right upper and lower extremity which has not changed much since admission. Continue aggressive PT/OT, continue to monitor his blood pressure on Losartan 100mg a day. Can consider adding Hydralazine scheduled, if there is no improvement in his blood pressure over the course of the next few days. Awaiting Rehab placement preferably close to his parents in the [facility].
[2020-06-20] MEDS: hydrALAZINE 25 MG TAB PO SCH ×3 (09:41→21:05)
[2020-06-20] MEDS: Clopidogrel Bisulfate 75 MG TAB PO SCH (09:41)
[2020-06-20] MEDS: Losartan 25 MG TAB PO SCH (09:41)
--- NOTE | 2020-06-20 13:50 | PDOC.NEUPN ---
- Subjective Encounter Date: 06/20/20 Subjective: Patient feels better and denies any new complaints in the last 24 hours - Objective Vital Signs & Weight: Vital Signs (12 hours) Temp Pulse Pulse Pulse Resp BP BP 06/20/20 11:45 97.5 F L 74 16 06/20/20 10:00 87 74 140/80 06/20/20 09:41 72 143/90 H 06/20/20 07:39 97.6 F 64 16 06/20/20 04:21 98.1 F 76 14 BP BP Pulse Ox 06/20/20 11:45 138/84 96 06/20/20 10:00 131/81 06/20/20 09:41 06/20/20 07:39 134/89 96 06/20/20 04:21 147/95 H 96 Weight Admit Weight 174 lb Weight 174 lb 13.232 oz Most Recent Monitor Data Heart Rate from ECG 72 NIBP 126/90 NIBP BP-Mean 102 Respiration from ECG 16 SpO2 100 I&O: 06/19/20 06/20/20 06/21/20 06:59 06:59 06:59 Intake Total 720 Output Total 650 1300 Balance -650 -580 Result Diagrams: 06/19/20 10:38 06/19/20 10:38 Radiology Reviewed by me: Yes EKG Reviewed by me: Yes ROS - Review of Systems Constitutional: denies: fever, chills, sweats, weakness, malaise, other Eyes: denies: pain, vision change, conjunctivae inflammation, eyelid inflammation, redness, other ENT: denies: ear pain, ear discharge, nose pain, nose discharge, nose congestion, mouth pain, mouth swelling, throat pain, throat swelling, other Respiratory: denies: cough, dry, shortness of breath, hemoptysis, SOB with excertion, pleuritic pain, sputum, wheezing, other Gastrointestinal: denies: nausea, vomiting, abdominal pain, diarrhea, constip ation, melena, hematochezia, other Musculoskeletal: denies: neck pain, shoulder pain, arm pain, back pain, hand pain, leg pain, foot pain, other Neurological: reports: weakness, numbness, incoordination, change in speech - Medication Medications: Active Medications Generic Name Dose Route Start Last Admin Trade Name Freq PRN Reason Stop Dose Admin Clopidogrel Bisulfate 75 mg 06/18/20 09:00 06/20/20 09:41 Clopidogrel Bisulfate 75 Mg Tab PO 75 mg DAILY ANTHONY Administration Hydralazine HCl 25 mg 06/17/20 21:00 06/20/20 09:41 Hydralazine 25 Mg Tab PO 25 mg TID ANTHONY Administration Losartan Potassium 100 mg 06/20/20 09:00 06/20/20 09:41 Losartan 25 Mg Tab PO 100 mg DAILY ANTHONY Administration Sodium Chloride 10 ml 06/19/20 21:00 06/20/20 09:42 Flush - Normal Saline 10 Ml Syringe IVF 10 ml Q12HR ANTHONY Administration - Exam General Appearance: awake alert Eye: PERRL ENT: normocephalic atraumatic Neck: supple Respiratory: CTAB Cardiovascular: RRR Gastrointestinal: soft Extremities: no cyanosis Skin: normal turgor Neurological: hemiplegia, speech deficit Musculoskeletal: normal tone PSYCH: normal affect, normal behavior, A&O x 3 Results - Labs Result Diagrams: 06/19/20 10:38 06/19/20 10:38 Lab results: WBC 4.8 thou/uL (4.8-10.8) 06/19/20 10:38 Hgb 16.5 g/dL (14.0-18.0) 06/19/20 10:38 Hct 48.4 % (42.0-52.0) 06/19/20 10:38 MCV 94.3 fL (78.0-98.0) 06/19/20 10:38 Plt Count 157 thou/uL (130-400) 06/19/20 10:38 Neutrophils % 62.3 % (42.0-75.0) 06/19/20 10:38 Sodium 136 mmol/L (136-145) 06/19/20 10:38 Potassium 4.0 mmol/L (3.5-5.1) 06/19/20 10:38 Chloride 105 mmol/L (98-107) 06/19/20 10:38 Carbon Dioxide 25 mmol/L (22-29) 06/19/20 10:38 BUN 20 mg/dL (8.4-25.7) 06/19/20 10:38 Creatinine 1.30 mg/dL (0.7-1.3) 06/19/20 10:38 Glucose 113 mg/dL (70-105) H 06/19/20 10:38 Calcium 9.3 mg/dL (7.8-10.44) 06/19/20 10:38 Total Bilirubin 0.5 mg/dL (0.2-1.2) 06/16/20 13:09 AST 55 U/L (5-34) H 06/16/20 13:09 ALT 31 U/L (8-55) 06/16/20 13:09 Alkaline Phosphatase 76 U/L (40-110) 06/16/20 13:09 Creatine Kinase 1462 U/L (30-200) H 06/16/20 13:09 Troponin I Less than 0.010 ng/mL (< 0.028) 06/16/20 12:15 Serum Total Protein 7.7 g/dL (6.0-8.3) 06/16/20 13:09 Albumin 4.0 g/dL (3.5-5.0) 06/16/20 13:09 - Radiology Interpretation MRI - head Status: image reviewed by me, report reviewed by me Additional Comment: MRI brain consistent with acute infarction in the left steph PN A/P (1) Acute CVA (cerebrovascular accident) Code(s): I63.9 - CEREBRAL INFARCTION, UNSPECIFIED Status: Acute (2) Dysarthria Code(s): R47.1 - DYSARTHRIA AND ANARTHRIA Status: Acute (3) Right hemiplegia Code(s): G81.91 - HEMIPLEGIA, UNSPECIFIED AFFECTING RIGHT DOMINANT SIDE Status: Acute (4) Hypertension Code(s): I10 - ESSENTIAL (PRIMARY) HYPERTENSION Status: Chronic (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 Anand Elizabeth is a 54-year-old male with history significant for sarcoma, hypertension presented with acute onset speech deficit with right hemiparesis. He is s/p TPA and there is improvement in the neurological deficit since admission. MRI of the brain consistent with acute infarction Awaiting discharge to rehab. Case management on board regarding discharge planning MRI of the brain reviewed which was consistent with acute infarction in the left steph Head CT reviewed which was negative for acute intracranial pathology. CTA of the head and neck reviewed and results noted. 2D echo showed left ventricular ejection fraction 55 to 60%. No thrombus or PFO Continue telemetry to rule out arrhythmias. Neurochecks every 4 hours. Strict control of blood pressure and blood glucose. Continue Plavix for secondary stroke prevention. Patient is allergic to aspirin. Continue high intensity statin for secondary stroke prevention. Continue home medications. PT/OT/speech DVT prophylaxis Continue medical management per primary team. Plan discussed in detail with the patient and during stroke rounds
[2020-06-21] MEDS: hydrALAZINE 25 MG TAB PO SCH ×3 (09:55→20:54)
[2020-06-21] MEDS: Clopidogrel Bisulfate 75 MG TAB PO SCH (09:55)
[2020-06-21] MEDS: Losartan 25 MG TAB PO SCH (09:57)
--- NOTE | 2020-06-21 13:47 | PDOC.NEUPN ---
- Subjective Encounter Date: 06/14/20 Subjective: He is much better and the weakness in the upper extremity is also improved as well as the lower extremity on the right - Objective Vital Signs & Weight: Vital Signs (12 hours) Temp Pulse Pulse Pulse Resp BP BP 06/21/20 11:21 98.6 F 68 16 06/21/20 09:55 75 117/77 06/21/20 08:34 79 72 115/70 06/21/20 07:58 97.8 F 73 16 06/21/20 04:32 97.7 F 75 16 06/21/20 04:11 BP BP BP Pulse Ox 06/21/20 11:21 117/78 96 06/21/20 09:55 06/21/20 08:34 120/75 06/21/20 07:58 126/77 91 L 06/21/20 04:32 130/79 96 06/21/20 04:11 96 Weight Admit Weight 174 lb Weight 174 lb 13.232 oz Most Recent Monitor Data Heart Rate from ECG 72 NIBP 126/90 NIBP BP-Mean 102 Respiration from ECG 16 SpO2 100 I&O: 06/20/20 06/21/20 06/22/20 06:59 06:59 05:59 Intake Total 720 960 250 Output Total 1300 280 500 Balance -580 680 -250 Result Diagrams: 06/19/20 10:38 06/19/20 10:38 Radiology Reviewed by me: Yes EKG Reviewed by me: Yes ROS - Review of Systems Constitutional: denies: fever, chills, sweats, weakness, malaise, other Eyes: denies: pain, vision change, conjunctivae inflammation, eyelid inflammation, redness, other ENT: denies: ear pain, ear discharge, nose pain, nose discharge, nose congestion, mouth pain, mouth swelling, throat pain, throat swelling, other Respiratory: denies: cough, dry, shortness of breath, hemoptysis, SOB with excertion, pleuritic pain, sputum, wheezing, other Gastrointestinal: denies: nausea, vomiting, abdominal pain, diarrhea, constipation, melena, hematochezia, other Genitourinary: denies: dysuria, frequency, incontinence, hematuria, retention, other Musculoskeletal: denies: neck pain, shoulder pain, arm pain, back pain, hand pain, leg pain, foot pain, other Skin: denies: rash, lesions, kwaku, bruising, other Neurological: reports: weakness, numbness, change in speech All Systems: All other systems reviewed; all pertinent +/- noted in HPI/Subj - Medication Medications: Active Medications Generic Name Dose Route Start Last Admin Trade Name Santanaq PRN Reason Stop Dose Admin Clopidogrel Bisulfate 75 mg 06/18/20 09:00 06/21/20 09:55 Clopidogrel Bisulfate 75 Mg Tab PO 75 mg DAILY ANTHONY Administration Hydralazine HCl 25 mg 06/17/20 21:00 06/21/20 09:55 Hydralazine 25 Mg Tab PO 25 mg TID ANTHONY Administration Losartan Potassium 100 mg 06/20/20 09:00 06/21/20 09:57 Losartan 25 Mg Tab PO 100 mg DAILY ANTHONY Administration Sodium Chloride 10 ml 06/19/20 21:00 06/21/20 10:06 Flush - Normal Saline 10 Ml Syringe IVF 10 ml Q12HR ANTHONY Administration - Exam General Appearance: awake alert Eye: PERRL ENT: normocephalic atraumatic Neck: supple Respiratory: CTAB Cardiovascular: RRR Gastrointestinal: soft Extremities: no cyanosis Skin: normal turgor Neurological: no new deficit Musculoskeletal: generalized weakness PSYCH: A&O x 3 Results - Labs Result Diagrams: 06/19/20 10:38 06/19/20 10:38 Lab results: WBC 4.8 thou/uL (4.8-10.8) 06/19/20 10:38 Hgb 16.5 g/dL (14.0-18.0) 06/19/20 10:38 Hct 48.4 % (42.0-52.0) 06/19/20 10:38 MCV 94.3 fL (78.0-98.0) 06/19/20 10:38 Plt Count 157 thou/uL (130-400) 06/19/20 10:38 Neutrophils % 62.3 % (42.0-75.0) 06/19/20 10:38 Sodium 136 mmol/L (136-145) 06/19/20 10:38 Potassium 4.0 mmol/L (3.5-5.1) 06/19/20 10:38 Chloride 105 mmol/L (98-107) 06/19/20 10:38 Carbon Dioxide 25 mmol/L (22-29) 06/19/20 10:38 BUN 20 mg/dL (8.4-25.7) 06/19/20 10:38 Creatinine 1.30 mg/dL (0.7-1.3) 06/19/20 10:38 Glucose 113 mg/dL (70-105) H 06/19/20 10:38 Calcium 9.3 mg/dL (7.8-10.44) 06/19/20 10:38 Total Bilirubin 0.5 mg/dL (0.2-1.2) 06/16/20 13:09 AST 55 U/L (5-34) H 06/16/20 13:09 ALT 31 U/L (8-55) 06/16/20 13:09 Alkaline Phosphatase 76 U/L (40-110) 06/16/20 13:09 Creatine Kinase 1462 U/L (30-200) H 06/16/20 13:09 Troponin I Less than 0.010 ng/mL (< 0.028) 06/16/20 12:15 Serum Total Protein 7.7 g/dL (6.0-8.3) 06/16/20 13:09 Albumin 4.0 g/dL (3.5-5.0) 06/16/20 13:09 - Radiology Interpretation MRI - head Status: image reviewed by me, report reviewed by me Additional Comment: MRI of the brain consistent with acute infarction in the left steph PN A/P (1) Acute CVA (cerebrovascular accident) Code(s): I63.9 - CEREBRAL INFARCTION, UNSPECIFIED Status: Acute (2) Dysarthria Code(s): R47.1 - DYSARTHRIA AND ANARTHRIA Status: Acute (3) Right hemiplegia Code(s): G81.91 - HEMIPLEGIA, UNSPECIFIED AFFECTING RIGHT DOMINANT SIDE Status: Acute (4) Hypertension Code(s): I10 - ESSENTIAL (PRIMARY) HYPERTENSION Status: Chronic (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 Anand Elizabeth is a 54-year-old male with history significant for sarcoma, hypertension presented with acute onset speech deficit with right hemiparesis. He is s/p TPA and there is improvement in the neurological deficit since admission. MRI of the brain consistent with acute infarction. Today patient was able to raise the right upper extremity above bed which is a new change. Awaiting discharge to rehab. Case management on board regarding discharge planning MRI of the brain reviewed which was consistent with acute infarction in the left steph Head CT reviewed which was negative for acute intracranial pathology. CTA of the head and neck reviewed and results noted. 2D echo showed left ventricular ejection fraction 55 to 60%. No thrombus or PFO Continue telemetry to rule out arrhythmias. Neurochecks every 4 hours. Strict control of blood pressure and blood glucose. Continue Plavix for secondary stroke prevention. Patient is allergic to aspirin. Continue high intensity statin for secondary stroke prevention. Continue home medications. PT/OT/speech DVT prophylaxis Continue medical management per primary team. Plan discussed in detail with the patient
--- NOTE | 2020-06-21 13:56 | PDOC.HOSPP ---
- Subjective Encounter Date: 06/21/20 Encounter Time: 08:00 Subjective: Patient seen for follow-up regarding ischemic cerebrovascular accident. Reports feeling better. - Objective Vital Signs & Weight: Vital Signs (12 hours) Temp Pulse Pulse Pulse Resp BP BP 06/21/20 11:21 98.6 F 68 16 06/21/20 09:55 75 117/77 06/21/20 08:34 79 72 115/70 06/21/20 07:58 97.8 F 73 16 06/21/20 04:32 97.7 F 75 16 06/21/20 04:11 BP BP BP Pulse Ox 06/21/20 11:21 117/78 96 06/21/20 09:55 06/21/20 08:34 120/75 06/21/20 07:58 126/77 91 L 06/21/20 04:32 130/79 96 06/21/20 04:11 96 Weight Admit Weight 174 lb Weight 174 lb 13.232 oz Most Recent Monitor Data Heart Rate from ECG 72 NIBP 126/90 NIBP BP-Mean 102 Respiration from ECG 16 SpO2 100 I&O: 06/20/20 06/21/20 06/22/20 06:59 06:59 05:59 Intake Total 720 960 250 Output Total 1300 280 500 Balance -580 680 -250 Result Diagrams: 06/19/20 10:38 06/19/20 10:38 Additional Labs: Labs and MAR reviewed by me EKG Reviewed by me: Yes (Telemetry: NSR) Hospitalist ROS - Review of Systems Constitutional: denies: fever, chills, sweats, weakness, malaise Neurological: reports: weakness. denies: numbness, incoordination, change in speech, confusion, seizures - Medication Medications: Active Medications Generic Name Dose Route Start Last Admin Trade Name Freq PRN Reason Stop Dose Admin Clopidogrel Bisulfate 75 mg 06/18/20 09:00 06/21/20 09:55 Clopidogrel Bisulfate 75 Mg Tab PO 75 mg DAILY ANTHONY Administration Hydralazine HCl 25 mg 06/17/20 21:00 06/21/20 09:55 Hydralazine 25 Mg Tab PO 25 mg TID ANTHONY Administration Losartan Potassium 100 mg 06/20/20 09:00 06/21/20 09:57 Losartan 25 Mg Tab PO 100 mg DAILY ANTHONY Administration Sodium Chloride 10 ml 06/19/20 21:00 06/21/20 10:06 Flush - Normal Saline 10 Ml Syringe IVF 10 ml Q12HR ANTHONY Administration - Exam General Appearance: awake alert Eye: anicteric sclera ENT: moist mucosa Neck: supple Heart: RRR Respiratory: CTAB Gastrointestinal: soft Extremities: no cyanosis Skin: no rashes Neurological - other findings: Right sided weakness, dysarthria Psychiatric: normal affect Hosp A/P - Plan -Assessment (1) Acute CVA (cerebrovascular accident) Code(s): I63.9 - CEREBRAL INFARCTION, UNSPECIFIED Status: Acute (2) Right hemiplegia Code(s): G81.91 - HEMIPLEGIA, UNSPECIFIED AFFECTING RIGHT DOMINANT SIDE Status: Acute (3) Hypertension Code(s): I10 - ESSENTIAL (PRIMARY) HYPERTENSION Status: Chronic (4) Dysarthria Code(s): R47.1 - DYSARTHRIA AND ANARTHRIA Status: Acute (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 * Patient is on Plavix * Patient is allergic to statins. * HTN-monitor vital signs and titrate antihypertensives as needed. * Continue PT/OT and Speech Therapy * Disposition: Awaiting rehab bed. * *
[2020-06-21] MEDS: Acetaminophen 325 MG TAB PO PRN (20:54)
[2020-06-22] MEDS: hydrALAZINE 25 MG TAB PO SCH ×3 (09:11→20:34)
[2020-06-22] MEDS: Losartan 25 MG TAB PO SCH (09:11)
[2020-06-22] MEDS: Clopidogrel Bisulfate 75 MG TAB PO SCH (09:12)
--- NOTE | 2020-06-22 11:54 | PDOC.NEUPN ---
- Subjective Encounter Date: 06/22/20 Subjective: Mr. Acevedo feels much better today. He was able to raise both his upper and lower extremity on the right above the bed which is an improvement. - Objective Vital Signs & Weight: Vital Signs (12 hours) Temp Pulse Resp BP BP Pulse Ox 06/22/20 11:33 98 F 78 16 130/80 95 06/22/20 08:00 96 06/22/20 07:40 97.5 F L 75 16 117/70 96 06/22/20 03:24 97.6 F 62 14 108/70 95 Weight Admit Weight 174 lb Weight 174 lb 13.232 oz Most Recent Monitor Data Heart Rate from ECG 72 NIBP 126/90 NIBP BP-Mean 102 Respiration from ECG 16 SpO2 100 I&O: 06/21/20 06/22/20 06/23/20 07:59 06:59 06:59 Intake Total Output Total Balance Result Diagrams: 06/19/20 10:38 06/19/20 10:38 Radiology Reviewed by me: Yes EKG Reviewed by me: Yes ROS - Review of Systems Constitutional: denies: fever, chills, sweats, weakness, malaise, other Eyes: denies: pain, vision change, conjunctivae inflammation, eyelid inflammation, redness, other ENT: denies: ear pain, ear discharge, nose pain, nose discharge, nose congestion, mouth pain, mouth swelling, throat pain, throat swelling, other Respiratory: denies: cough, dry, shortness of breath, hemoptysis, SOB with excertion, pleuritic pain, sputum, wheezing, other Gastrointestinal: denies: nausea, vomiting, abdominal pain, diarrhea, constipation, melena, hematochezia, other Genitourinary: denies: dysuria, frequency, incontinence, hematuria, retention, other Musculoskeletal: denies: neck pain, shoulder pain, arm pain, back pain, hand pain, leg pain, foot pain, other Skin: denies: rash, lesions, kwaku, bruising, other Neurological: reports: weakness, numbness, change in speech. denies: incoordination, confusion, seizures, other - Medication Medications: Active Medications Generic Name Dose Route Start Last Admin Trade Name Freq PRN Reason Stop Dose Admin Acetaminophen 650 mg 06/20/20 21:20 10/31/20 20:54 Acetaminophen 325 Mg Tab PO 650 mg Q4H PRN Administration Headache/Fever or Pain Clopidogrel Bisulfate 75 mg 06/18/20 09:00 06/22/20 09:12 Clopidogrel Bisulfate 75 Mg Tab PO 75 mg DAILY ANTHOYN Administration Hydralazine HCl 25 mg 06/17/20 21:00 06/22/20 09:11 Hydralazine 25 Mg Tab PO 25 mg TID ANTHONY Administration Losartan Potassium 100 mg 06/20/20 09:00 06/22/20 09:11 Losartan 25 Mg Tab PO 100 mg DAILY ANTHONY Administration Sodium Chloride 10 ml 06/19/20 21:00 06/22/20 09:12 Flush - Normal Saline 10 Ml Syringe IVF 10 ml Q12HR ANTHONY Administration - Exam General Appearance: awake alert Eye: PERRL ENT: normocephalic atraumatic Neck: supple Respiratory: CTAB Cardiovascular: RRR Gastrointestinal: soft Extremities: no cyanosis Skin: normal turgor Neurological: no new deficit Musculoskeletal: normal tone Musculoskeletal - other findings: RUE RLE 3/5 LUE LLE 5 PSYCH: normal affect, normal behavior, A&O x 3, oriented to person, oriented to place, oriented to time Results - Labs Result Diagrams: 06/19/20 10:38 06/19/20 10:38 Lab results: WBC 4.8 thou/uL (4.8-10.8) 06/19/20 10:38 Hgb 16.5 g/dL (14.0-18.0) 06/19/20 10:38 Hct 48.4 % (42.0-52.0) 06/19/20 10:38 MCV 94.3 fL (78.0-98.0) 06/19/20 10:38 Plt Count 157 thou/uL (130-400) 06/19/20 10:38 Neutrophils % 62.3 % (42.0-75.0) 06/19/20 10:38 Sodium 136 mmol/L (136-145) 06/19/20 10:38 Potassium 4.0 mmol/L (3.5-5.1) 06/19/20 10:38 Chloride 105 mmol/L (98-107) 06/19/20 10:38 Carbon Dioxide 25 mmol/L (22-29) 06/19/20 10:38 BUN 20 mg/dL (8.4-25.7) 06/19/20 10:38 Creatinine 1.30 mg/dL (0.7-1.3) 06/19/20 10:38 Glucose 113 mg/dL (70-105) H 06/19/20 10:38 Calcium 9.3 mg/dL (7.8-10.44) 06/19/20 10:38 Total Bilirubin 0.5 mg/dL (0.2-1.2) 06/16/20 13:09 AST 55 U/L (5-34) H 06/16/20 13:09 ALT 31 U/L (8-55) 06/16/20 13:09 Alkaline Phosphatase 76 U/L (40-110) 06/16/20 13:09 Creatine Kinase 1462 U/L (30-200) H 06/16/20 13:09 Troponin I Less than 0.010 ng/mL (< 0.028) 06/16/20 12:15 Serum Total Protein 7.7 g/dL (6.0-8.3) 06/16/20 13:09 Albumin 4.0 g/dL (3.5-5.0) 06/16/20 13:09 - Radiology Interpretation MRI - head Additional Comment: MRI of the brain showed acute infarction in the left steph PN A/P (1) Acute CVA (cerebrovascular accident) Code(s): I63.9 - CEREBRAL INFARCTION, UNSPECIFIED Status: Acute (2) Dysarthria Code(s): R47.1 - DYSARTHRIA AND ANARTHRIA Status: Acute (3) Right hemiplegia Code(s): G81.91 - HEMIPLEGIA, UNSPECIFIED AFFECTING RIGHT DOMINANT SIDE Status: Acute (4) Hypertension Code(s): I10 - ESSENTIAL (PRIMARY) HYPERTENSION Status: Chronic (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 Anand Elizabeth is a 54-year-old male with history significant for sarcoma, hypertension presented with acute onset speech deficit with right hemiparesis. He is s/p TPA and there is improvement in the neurological deficit since admission. MRI of the brain consistent with acute infarction. There is marked improvement in the neurological deficits and today he was able to raise both his upper and lower extremities above the bed. He is awaiting discharge to rehab. Continue PT/OT/speech Case management on board regarding discharge planning. MRI of the brain reviewed which was consistent with acute infarction in the left steph Head CT reviewed which was negative for acute intracranial pathology. CTA of the head and neck reviewed and results noted. 2D echo showed left ventricular ejection fraction 55 to 60%. No thrombus or PFO Continue telemetry to rule out arrhythmias. Neurochecks every 4 hours. Strict control of blood pressure and blood glucose. Continue Plavix for secondary stroke prevention. Patient is allergic to aspirin. Continue high intensity statin for secondary stroke prevention. Continue home medications. DVT prophylaxis Continue medical management per primary team. Plan discussed in detail with the patient and the family member at bedside and the nursing staff.
--- NOTE | 2020-06-22 16:44 | PDOC.HOSPP ---
- Subjective Encounter Date: 06/22/20 Encounter Time: 09:30 Subjective: Patient seen for follow-up regarding cerebrovascular accident. He reports that he is slightly stronger on the right side today compared to couple of days ago. - Objective Vital Signs & Weight: Vital Signs (12 hours) Temp Pulse Resp BP Pulse Ox 06/22/20 15:22 98.4 F 65 16 124/72 97 06/22/20 11:33 98 F 78 16 130/80 95 06/22/20 08:00 96 06/22/20 07:40 97.5 F L 75 16 117/70 96 Weight Admit Weight 174 lb Weight 174 lb 13.232 oz Most Recent Monitor Data Heart Rate from ECG 72 NIBP 126/90 NIBP BP-Mean 102 Respiration from ECG 16 SpO2 100 I&O: 06/21/20 06/22/20 06/23/20 07:59 06:59 06:59 Intake Total Output Total 200 Balance -200 Result Diagrams: 06/19/20 10:38 06/19/20 10:38 Additional Labs: I reviewed patient's labs and MAR EKG Reviewed by me: Yes (Telemetry: NSR) Hospitalist ROS - Review of Systems Cardiovascular: denies: chest pain, palpitations, orthopnea, paroxysmal noc. dyspnea, edema, light headedness Gastrointestinal: denies: nausea, vomiting, abdominal pain, diarrhea, constipation, melena, hematochezia - Medication Medications: Active Medications Generic Name Dose Route Start Last Admin Trade Name Freq PRN Reason Stop Dose Admin Acetaminophen 650 mg 06/20/20 21:20 06/21/20 20:54 Acetaminophen 325 Mg Tab PO 650 mg Q4H PRN Administration Headache/Fever or Pain Clopidogrel Bisulfate 75 mg 06/18/20 09:00 06/22/20 09:12 Clopidogrel Bisulfate 75 Mg Tab PO 75 mg DAILY ANTHONY Administration Hydralazine HCl 25 mg 06/17/20 21:00 06/22/20 14:16 Hydralazine 25 Mg Tab PO 25 mg TID ANTHONY Administration Losartan Potassium 100 mg 06/20/20 09:00 06/22/20 09:11 Losartan 25 Mg Tab PO 100 mg DAILY ANTHONY Administration Sodium Chloride 10 ml 06/19/20 21:00 06/22/20 09:12 Flush - Normal Saline 10 Ml Syringe IVF 10 ml Q12HR ANTHONY Administration - Exam General Appearance: awake alert Eye: anicteric sclera ENT: moist mucosa Neck: supple Heart: RRR Respiratory: CTAB Gastrointestinal: soft Extremities: no edema Skin: no rashes Neurological - other findings: Right weakness Psychiatric: normal affect, normal behavior Hosp A/P - Plan -Assessment (1) Acute CVA (cerebrovascular accident) Code(s): I63.9 - CEREBRAL INFARCTION, UNSPECIFIED Status: Acute (2) Right hemiplegia Code(s): G81.91 - HEMIPLEGIA, UNSPECIFIED AFFECTING RIGHT DOMINANT SIDE Status: Acute (3) Hypertension Code(s): I10 - ESSENTIAL (PRIMARY) HYPERTENSION Status: Chronic (4) Dysarthria Code(s): R47.1 - DYSARTHRIA AND ANARTHRIA Status: Acute (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 * Continue Plavix * Patient is allergic to statins, therefore not on statins.. * HTN-controlled * Continue PT/OT and Speech Therapy * Disposition: Awaiting rehab bed. * *
[2020-06-22] MEDS: Acetaminophen 325 MG TAB PO PRN (20:34)
[2020-06-23] MEDS: Clopidogrel Bisulfate 75 MG TAB PO SCH (08:24)
[2020-06-23] MEDS: hydrALAZINE 25 MG TAB PO SCH ×2 (08:24→15:31)
[2020-06-23] MEDS: Losartan 25 MG TAB PO SCH (08:24)
[2020-06-23 11:58] VITALS: TEMP 98
--- NOTE | 2020-06-23 13:01 | PDOC.NEUPN ---
- Subjective Encounter Date: 06/23/20 Subjective: Mr. Acevedo has marked improvement in the strength of the right upper and lower extremity since admission. He is status post TPA and is doing well. No complaints of the last 24 hours. - Objective Vital Signs & Weight: Vital Signs (12 hours) Temp Pulse Pulse Pulse Resp BP BP 06/23/20 11:58 98 F 67 16 06/23/20 09:00 74 70 137/82 132/81 06/23/20 08:00 97.9 F 69 18 06/23/20 07:21 06/23/20 05:10 06/23/20 04:54 97.9 F 64 14 BP BP Pulse Ox Pulse Ox Pulse Ox 06/23/20 11:58 117/80 95 06/23/20 09:00 95 95 06/23/20 08:00 129/79 95 06/23/20 07:21 94 L 06/23/20 05:10 94 L 06/23/20 04:54 110/69 94 L Weight Admit Weight 174 lb Weight 179 lb Most Recent Monitor Data Heart Rate from ECG 72 NIBP 126/90 NIBP BP-Mean 102 Respiration from ECG 16 SpO2 100 I&O: 06/22/20 06/23/20 06/24/20 06:59 06:59 06:59 Intake Total 238 Output Total 200 Balance -200 238 Result Diagrams: 06/19/20 10:38 06/19/20 10:38 Radiology Reviewed by me: Yes EKG Reviewed by me: Yes ROS - Review of Systems Eyes: denies: pain, vision change, conjunctivae inflammation, eyelid inflammation, redness, other ENT: denies: ear pain, ear discharge, nose pain, nose discharge, nose congestion, mouth pain, mouth swelling, throat pain, throat swelling, other Respiratory: denies: cough, dry, shortness of breath, hemoptysis, SOB with excertion, pleuritic pain, sputum, wheezing, other Cardiovascular: denies: no pertinent history, AFIB, CAD, CHF, HTN, AK, Syncope, Hyperlipidemia, Mitral valve stenosis, Aortic stenosis, Valve insufficiency, Pulmonary hypertension, Other Gastrointestinal: denies: nausea, vomiting, abdominal pain, diarrhea, constipation, melena, hematochezia, other Genitourinary: denies: dysuria, frequency, incontinence, hematuria, retention, other Neurological: reports: weakness, numbness, incoordination, change in speech. denies: confusion, seizures, other - Medication Medications: Active Medications Generic Name Dose Route Start Last Admin Trade Name Brittney PRN Reason Stop Dose Admin Acetaminophen 650 mg 06/20/20 21:20 06/22/20 20:34 Acetaminophen 325 Mg Tab PO 650 mg Q4H PRN Administration Headache/Fever or Pain Clopidogrel Bisulfate 75 mg 06/18/20 09:00 06/23/20 08:24 Clopidogrel Bisulfate 75 Mg Tab PO 75 mg DAILY ANTHONY Administration Hydralazine HCl 25 mg 06/17/20 21:00 06/23/20 08:24 Hydralazine 25 Mg Tab PO 25 mg TID ANTHONY Administration Losartan Potassium 100 mg 06/20/20 09:00 06/23/20 08:24 Losartan 25 Mg Tab PO 100 mg DAILY ANTHONY Administration Sodium Chloride 10 ml 06/19/20 21:00 06/23/20 08:25 Flush - Normal Saline 10 Ml Syringe IVF 10 ml Q12HR ANTHONY Administration - Exam General Appearance: awake alert Eye: PERRL ENT: normocephalic atraumatic Neck: supple Respiratory: CTAB Cardiovascular: RRR Gastrointestinal: soft Extremities: no cyanosis Skin: normal turgor Neurological: CN's grossly intact, no new deficit Musculoskeletal: normal tone PSYCH: normal affect, normal behavior, A&O x 3, oriented to person, oriented to place, oriented to time Results - Labs Result Diagrams: 06/19/20 10:38 06/19/20 10:38 Lab results: WBC 4.8 thou/uL (4.8-10.8) 06/19/20 10:38 Hgb 16.5 g/dL (14.0-18.0) 06/19/20 10:38 Hct 48.4 % (42.0-52.0) 06/19/20 10:38 MCV 94.3 fL (78.0-98.0) 06/19/20 10:38 Plt Count 157 thou/uL (130-400) 06/19/20 10:38 Neutrophils % 62.3 % (42.0-75.0) 06/19/20 10:38 Sodium 136 mmol/L (136-145) 06/19/20 10:38 Potassium 4.0 mmol/L (3.5-5.1) 06/19/20 10:38 Chloride 105 mmol/L (98-107) 06/19/20 10:38 Carbon Dioxide 25 mmol/L (22-29) 06/19/20 10:38 BUN 20 mg/dL (8.4-25.7) 06/19/20 10:38 Creatinine 1.30 mg/dL (0.7-1.3) 06/19/20 10:38 Glucose 113 mg/dL (70-105) H 06/19/20 10:38 Calcium 9.3 mg/dL (7.8-10.44) 06/19/20 10:38 Total Bilirubin 0.5 mg/dL (0.2-1.2) 06/16/20 13:09 AST 55 U/L (5-34) H 06/16/20 13:09 ALT 31 U/L (8-55) 06/16/20 13:09 Alkaline Phosphatase 76 U/L (40-110) 06/16/20 13:09 Creatine Kinase 1462 U/L (30-200) H 06/16/20 13:09 Troponin I Less than 0.010 ng/mL (< 0.028) 06/16/20 12:15 Serum Total Protein 7.7 g/dL (6.0-8.3) 06/16/20 13:09 Albumin 4.0 g/dL (3.5-5.0) 06/16/20 13:09 - EKG Interpretation EKG: Normal sinus rhythm PN A/P (1) Acute CVA (cerebrovascular accident) Code(s): I63.9 - CEREBRAL INFARCTION, UNSPECIFIED Status: Acute (2) Dysarthria Code(s): R47.1 - DYSARTHRIA AND ANARTHRIA Status: Acute (3) Right hemiplegia Code(s): G81.91 - HEMIPLEGIA, UNSPECIFIED AFFECTING RIGHT DOMINANT SIDE Status: Acute (4) Hypertension Code(s): I10 - ESSENTIAL (PRIMARY) HYPERTENSION Status: Chronic (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 Anand Elizabeth is a 54-year-old male with history significant for sarcoma, hypertension presented with acute onset speech deficit with right hemiparesis. He is s/p TPA and there is improvement in the neurological deficit since admission. MRI of the brain consistent with acute infarction. There is marked improvement in the neurological deficits since admission from hemiplegia on the right to 3 x 5 in both right upper and lower extremities. He is awaiting discharge to rehab. Continue PT/OT/speech Case management on board regarding discharge planning. MRI of the brain reviewed which was consistent with acute infarction in the left steph Head CT reviewed which was negative for acute intracranial pathology. CTA of the head and neck reviewed and results noted. 2D echo showed left ventricular ejection fraction 55 to 60%. No thrombus or PFO Continue telemetry to rule out arrhythmias. Neurochecks every 4 hours. Strict control of blood pressure and blood glucose. Continue Plavix for secondary stroke prevention. Patient is allergic to aspir in. Continue high intensity statin for secondary stroke prevention. Continue home medications. DVT prophylaxis Continue medical management per primary team. Plan discussed in detail with the patient and during stroke rounds.
--- NOTE | 2020-06-23 13:16 | PDOC.DS.DS ---
Provider - Provider Date of Admission: 06/16/20 14:58 Date of Discharge: 06/23/20 Admitting Provider: Navdeep Mendosa MD Consultations: Neurology Primary Care Physician: OUT OF TOWN Course - Hospital Course Hospital Course: Discharge diagnosis: 1. Acute ischemic cerebrovascular accident 2. Status post TPA 3. Hyponatremia 4. Dyslipidemia 5. COVID-19 test negative Hospital course: Patient is a pleasant 51 steroid gentleman who was admitted to the hospital on June 16, 2020 for sudden onset dysarthria and right-sided weakness. He was treated with TPA. He was admitted to the CCU. Neurology service was consulted. He is allergic to NSAIDs. He was therefore started on Plavix. He is also allergic to statins, therefore could not be started on statin. Repeat noncontrast CT scan of the brain did not show any acute intracranial process. He was seen by therapy services. MRI of the brain on June 18 showed acute infarct in the left steph. 2D echocardiogram did not show obvious intracardiac thrombi or masses. There was no evidence of PFO or ASD. LVEF was [address] angiogram of the brain and neck was also done. Was found to have mild atherosclerotic calcifications and plaque with mild narrowing involving each proximal internal carotid artery, but the degree of narrowing was less than 50%. He had patent bilateral vertebral arteries, focal severe stenosis involving the proximal left superior cerebellar artery, mild to moderate atherosclerotic irregularity and narrowing involving the most proximal right posterior cerebral artery, patent bilateral anterior cerebral and middle cerebral arteries. He was seen by therapy services. Inpatient rehab was recommended. He is being discharged for inpatient rehab. Discharge destination: Inpatient rehab Total amount of time spent coordinating this discharge: 32 minutes Resuscitation Status: 06/16/20 15:56 Resuscitation Status Routine Resuscitation Status: DNAR: NO Resuscitation Discussed with: Patient certain - Labs Lab Results: 06/19/20 10:38 06/19/20 10:38 - Physical Exam Vitals: Vital Signs (12 hours) Temp Pulse Pulse Pulse Resp BP BP 06/23/20 11:58 98 F 67 16 06/23/20 09:00 74 70 137/82 132/81 06/23/20 08:00 97.9 F 69 18 06/23/20 07:21 06/23/20 05:10 06/23/20 04:54 97.9 F 64 14 BP BP Pulse Ox Pulse Ox Pulse Ox 06/23/20 11:58 117/80 95 06/23/20 09:00 95 95 06/23/20 08:00 129/79 95 06/23/20 07:21 94 L 06/23/20 05:10 94 L 06/23/20 04:54 110/69 94 L Weight Admit Weight 174 lb Weight 179 lb Most Recent Monitor Data Heart Rate from ECG 72 NIBP 126/90 NIBP BP-Mean 102 Respiration from ECG 16 SpO2 100 Physical Exam: The patient was seen and examined on the day of discharge. He denies any chest pain or shortness of breath. Vital signs are stable. S1 and S2 are heard, regular. Lungs are clear to auscultation bilaterally. Plan - Discharge Medications Home Medications: Medication Instructions Recorded Confirmed Type Losartan [Cozaar] 100 mg PO DAILY 06/17/20 06/17/20 History Clopidogrel Bisulfate [Plavix] 75 mg PO DAILY tab 06/23/20 Rx Allergies: amlodipine Allergy (Verified 06/17/20 18:00) pt states "leg cramps" NSAIDS (Non-Steroidal Anti-Inflamma Allergy (Verified 06/18/20 16:40) Oekmvce-[id number]-[id number] Reductase Inhibitor Allergy (Verified 06/19/20 20:41) - Discharge Instructions Discharge Instructions:: Transfer to [facility] [phone] Activity:: Activity as Tolerated Nourishment:: Heart Healthy Diet Therapies:: Occupational Therapy, Physical Therapy, Speech Therapy - Follow up Plan [facility]errals: [facility] [Primary Care Provider] - 3 Days Disposition: REHABILITATION INPATIENT
[2020-06-23 15:33] VITALS: BP 137/89
== END 2020-06-23 16:33 | DRG 62 ==
LOC: ERS 12:09 → CCU 14:58 → 2SE 06-17 16:08
PROVIDERS: ADMIT Student in an Organized Health Care Education/Training Program; ATTEND Internal Medicine
DX: I63.89 Other cerebral infarction (principal); E87.1 Hypo-osmolality and hyponatremia; G81.91 Hemiplegia, unspecified affecting right dominant side; N17.9 Acute kidney failure, unspecified; C49.9 Malignant neoplasm of connective and soft tissue, unspecified; Z66 Do not resuscitate; Z20.828 Contact with and (suspected) exposure to other viral communicable diseases; E78.5 Hyperlipidemia, unspecified; R47.1 Dysarthria and anarthria; R47.81 Slurred speech; I12.9 Hypertensive chronic kidney disease with stage 1 through stage 4 chronic kidney disease, or unspecified chronic kidney disease; R29.707 NIHSS score 7; N18.9 Chronic kidney disease, unspecified; Z88.8 Allergy status to other drugs, medicaments and biological substances; Z23 Encounter for immunization; Z87.891 Personal history of nicotine dependence; Z88.6 Allergy status to analgesic agent
CPT/HCPCS: 36415; 36416; 70450; 70496; 70498; 70551; 80048; 80053; 80061; 82550; 84484; 85025; 85610; 85730; 87635; 90471; 90662; 93005; 93306; 96365; 96375; 96376; 99292; G0008; J2997; Q9967; U0003